=== PATIENT | female | born 1995 | race African-American/Black ===

== ENCOUNTER 2020-10-21 07:07 | Emergency (ER) | payer MEDICAID ==
[~2020-10-21] VITALS: Ht 167.6 cm; Wt 81.0 kg
[2020-10-21] MEDS ORDERED: ONDANSETRON HCL 4MG/2ML INJ IV STA (08:09)
[2020-10-21] MEDS ORDERED: DEXT 5%/0.9% NACL 1,000 ML IV ONE (08:15)
[2020-10-21] MEDS ORDERED: METOCLOPRAMIDE HCL 10MG TABLET PO ONE (08:15)
[2020-10-21 09:35] LABS: BASOPHILS % 0.5 % (0.0-2.0); EOSINOPHILS % 0.3 % (0.0-5.0); HEMATOCRIT. 32.3 % (36.0-48.0); HEMOGLOBIN. 11.3 g/dL (12.0-16.0); LYMPHOCYTES % 24.7 % (20.0-50.0); MEAN CORPUSCULAR HEMOGLOBIN 30.1 pg (28.0-32.0); MEAN CORPUSCULAR VOLUME 86.4 fL (81.0-99.0); MONOCYTES % 10.4 % (2.0-8.0); NEUTROPHILS % 64.1 % (40.0-76.0); PLATELET 347 x1000/uL (130-400); RED BLOOD CELL COUNT 3.74 mill/uL (4.2-5.4); RED CELL DISTRIBUTION WIDTH 13.1 % (11.6-14.6)
[2020-10-21 09:36] LABS: CLARITY URINE CLEAR (CLEAR); COLOR URINE DARK YELLOW (YELLOW); KETONES URINE 4+ (NEGATIVE); LEUKOCYTE ESTERASE URINE 1+ (NEGATIVE); NITRITE URINE NEGATIVE (NEGATIVE); OCCULT BLOOD URINE 2+ (NEGATIVE); PH URINE 6.5 (4.5-8.0); PROTEIN URINE 2+ (NEGATIVE); SPECIFIC GRAVITY URINE 1.034 (1.005-1.030)
[2020-10-21 09:41] LABS: CHLORIDE 103 mEq/L (98-107)
[2020-10-21 09:51] LABS: HCG SCREEN NEGATIVE
[2020-10-21] MEDS ORDERED: POTASSIUM BICARB/CIT ACID 25 MEQ TABLET.EFF PO NR (10:00)
[2020-10-21] MEDS ORDERED: METO-293 MT (13:29)
[2020-10-21 14:00] VITALS: BP 128/88
== END 2020-10-21 14:22 | disposition home or self-care (01) ==
LOC: ER 07:07
DX: K44.9 Diaphragmatic hernia without obstruction or gangrene (principal); Z88.9 Allergy status to unspecified drugs, medicaments and biological substances; Z88.8 Allergy status to other drugs, medicaments and biological substances; Z86.59 Personal history of other mental and behavioral disorders; Z98.890 Other specified postprocedural states
CPT/HCPCS: 36415; 80053; 81003; 81025; 83690; 84703; 85025; 99285; J2405; J7042; J8597

== ENCOUNTER 2021-01-01 09:41 | Emergency (ER) | payer MEDICAID ==
[~2021-01-01] VITALS: Ht 167.6 cm; Wt 64.0 kg
[~2021-01-01 09:41] MED LIST: METO-293 MT
[2021-01-01 11:16] LABS: BASOPHILS % 0.4 % (0.0-2.0); HEMATOCRIT. 38.4 % (36.0-48.0); HEMOGLOBIN. 13.2 g/dL (12.0-16.0); LYMPHOCYTES % 18.5 % (20.0-50.0); MEAN CORPUSCULAR HEMOGLOBIN 30.2 pg (28.0-32.0); MEAN CORPUSCULAR VOLUME 88.1 fL (81.0-99.0); MEAN PLATELET VOLUME 7.5 fl (7.4-10.4); MONOCYTES % 9.6 % (2.0-8.0); NEUTROPHILS % 71.5 % (40.0-76.0); PLATELET 320 x1000/uL (130-400); RED BLOOD CELL COUNT 4.35 mill/uL (4.2-5.4); RED CELL DISTRIBUTION WIDTH 13.6 % (11.6-14.6)
[2021-01-01 11:17] LABS: CLARITY URINE CLEAR (CLEAR); COLOR URINE YELLOW (YELLOW); KETONES URINE 4+ (NEGATIVE); LEUKOCYTE ESTERASE URINE NEGATIVE (NEGATIVE); NITRITE URINE NEGATIVE (NEGATIVE); OCCULT BLOOD URINE NEGATIVE (NEGATIVE); PH URINE 5.5 (4.5-8.0); PROTEIN URINE 1+ (NEGATIVE); SPECIFIC GRAVITY URINE 1.034 (1.005-1.030)
[2021-01-01 11:21] LABS: CHLORIDE 106 mEq/L (98-107)
[2021-01-01 11:25] LABS: ETHANOL BLOOD < 10 mg/dL
[2021-01-01 11:30] LABS: *AMPHETAMINES SCREEN URINE NEGATIVE (NEGATIVE); *BARBITURATES SCREEN URINE NEGATIVE (NEGATIVE); *BENZODIAZEPINES SCREEN URINE NEGATIVE (NEGATIVE); *COCAINE SCREEN URINE NEGATIVE (NEGATIVE); CANNABINOID URINE SCREEN NEGATIVE (NEGATIVE); PHENCYCLIDINE URINE SCREEN NEGATIVE (NEGATIVE)
[2021-01-01 11:31] LABS: METHADONE URINE SCREEN NEGATIVE (NEGATIVE); OPIATES URINE SCREEN NEGATIVE (NEGATIVE)
[2021-01-01] MEDS: ARIPIPRAZOLE 5MG TABLET PO SCH (12:22)
[2021-01-01] MEDS: LORAZEPAM 0.5MG TABLET PO SCH ×2 (13:00→17:00)
[2021-01-02] MEDS: LORAZEPAM 0.5MG TABLET PO SCH ×2 (13:00→15:51)
[2021-01-02] MEDS: ARIPIPRAZOLE 5MG TABLET PO SCH (23:30)
[2021-01-03] MEDS: ARIPIPRAZOLE 5MG TABLET PO SCH (10:30)
[2021-01-04] MEDS: ARIPIPRAZOLE 5MG TABLET PO SCH (08:50)
[2021-01-05] MEDS: LORAZEPAM 0.5MG TABLET PO SCH ×6 (00:28→21:13)
[2021-01-05] MEDS: ARIPIPRAZOLE 5MG TABLET PO SCH (09:27)
[2021-01-05 20:45] VITALS: BP 140/95
== END 2021-01-05 21:45 ==
LOC: ER 09:48
DX: F06.1 Catatonic disorder due to known physiological condition (principal); F81.81 Disorder of written expression; F72 Severe intellectual disabilities; F20.9 Schizophrenia, unspecified; Z88.8 Allergy status to other drugs, medicaments and biological substances; Z20.822 Contact with and (suspected) exposure to COVID-19
CPT/HCPCS: 36415; 80053; 80305; 80320; 81003; 81025; 85025; 99285; C9803; U0003; U0005; Z7610; G0480